=== PATIENT | female | born 1930 | race Asian ===

== ENCOUNTER 2016-09-07 10:12 | Day surgery (SDC) | payer OTHER, MEDICAID ==
[2016-09-07] MEDS ORDERED: MIDAZOLAM HCL 5 MG/5 ML VIAL ONE (11:56)
[2016-09-07] MEDS ORDERED: fentaNYL CITRATE/PF 100 MCG/2 ML AMP ONE (11:56)
[2016-09-07] MEDS ORDERED: SIMETHICONE 40 MG/0.6 ML ML ONE ×2 (13:49→15:28)
[2016-09-07 17:10] VITALS: BP_SYST 124
== END 2016-09-07 16:55 ==
LOC: SDS 10:12
PROVIDERS: ATTEND Internal Medicine
DX: D64.9 Anemia, unspecified (principal); K20.9 Esophagitis, unspecified; D12.0 Benign neoplasm of cecum; D12.5 Benign neoplasm of sigmoid colon; K64.8 Other hemorrhoids; F03.90 Unspecified dementia, unspecified severity, without behavioral disturbance, psychotic disturbance, mood disturbance, and anxiety; E78.5 Hyperlipidemia, unspecified; I10 Essential (primary) hypertension; N17.9 Acute kidney failure, unspecified; N39.0 Urinary tract infection, site not specified
CPT/HCPCS: 43239; 45380; 88305; 88312; 88313; J7030; J2250; J3010